=== PATIENT | female | born 1950 | race Caucasian/White ===

== ENCOUNTER 2017-05-03 13:52 | Emergency (ER) | payer OTHER ==
[2017-05-03] MEDS ORDERED: KETOROLAC 60 MG/2 ML VIAL IVP STA (14:27)
--- NOTE | 2017-05-03 14:30 | ED Physician Documentation ---
PD HPI ABD PAIN - Stated complaint Stated Complaint: R SIDE PX - Chief complaint Chief Complaint: Abd Pain - History obtained from History obtained from: Patient - History of Present Illness Timing - onset: Other (She had sudden onset right flank pain about 2 days ago that is nonradiating. There are no urinary or bowel complaints with it. She did vomit once but it was after taking a Vicodin, she has not otherwise been nauseous. She had similar symptoms briefly about 6 months ago that she thinks were kidney stone, she did not seek medical attention at that time.) Review of Systems Ten Systems: 10 systems reviewed and negative Constitutional: denies: Fever, Chills Nose: denies: Rhinorrhea / runny nose, Congestion Cardiac: denies: Chest pain / pressure, Palpitations Respiratory: denies: Dyspnea, Cough PD PAST MEDICAL HISTORY - Past Medical History Past Medical History: Yes Cardiovascular: High cholesterol - Present Medications Home Medications: Ambulatory Orders Medication Instructions Recorded Confirmed Atorvastatin [Lipitor] 0 mg 05/03/17 Ketorolac [Toradol] 10 mg PO Q6H PRN #14 tablet 05/03/17 - Allergies Allergies/Adverse Reactions: Allergies Allergy/AdvReac Type Severity Reaction Status Date / Time Penicillins Allergy Unknown Verified 05/03/17 14:18 Sulfa (Sulfonamide Allergy Unknown Verified 05/03/17 14:18 Antibiotics) - Social History Does the pt smoke?: No Smoking Status: Never smoker PD ED PE NORMAL - Vitals Vital signs reviewed: Yes - General General: Alert and oriented X 3, No acute distress - HEENT HEENT: PERRL, EOMI - Neck Neck: Supple, no meningeal sign, No bony TTP - Cardiac Cardiac: RRR, No murmur - Respiratory Respiratory: No respiratory distress, Clear bilaterally - Abdomen Abdomen: Normal bowel sounds, Soft, Non tender - Back Back: No CVA TTP, No spinal TTP - Derm Derm: Normal color, Warm and dry - Extremities Extremities: No edema, No calf tenderness / cord - Neuro Neuro: Alert and oriented X 3, Normal speech - Psych Psych: Normal mood, Normal affect Results - Vitals Vitals: Vital Signs - 24 hr 05/03/17 14:20 Temperature 36.6 C Heart Rate 68 Respiratory 14 Rate Blood Pressure 154/75 H O2 Saturation 98 Oxygen O2 Source Room air - Labs Labs: Laboratory Tests 05/03/17 05/03/17 05/03/17 14:20 14:40 14:40 WBC 9.6 RBC 5.02 Hgb 14.0 Hct 41.2 MCV 82.0 MCH 27.9 MCHC 34.1 RDW 13.3 Plt Count 227 MPV 8.8 Neut # 6.0 Lymph # 2.7 [place] # 0.6 Eos # 0.1 Baso # 0.1 Absolute Nucleated RBC 0.00 Nucleated RBC % 0.0 Sodium 133 L Potassium 3.3 L Chloride 98 L Carbon Dioxide 26 Anion Gap 9.0 BUN 20 Creatinine 0.8 Estimated GFR (MDRD) 72 L Glucose 130 H Calcium 9.0 Total Bilirubin 0.8 AST 21 ALT 20 Alkaline Phosphatase 76 Total Protein 8.1 Albumin 4.1 Globulin 4.0 Albumin/Globulin Ratio 1.0 Lipase 25 Urine Color YELLOW Urine Clarity CLEAR Urine pH 6.0 Ur Specific [place] 1.020 Urine Protein NEGATIVE Urine Glucose (UA) NEGATIVE Urine Ketones NEGATIVE Urine Occult Blood NEGATIVE Urine Nitrite NEGATIVE Urine Bilirubin NEGATIVE Urine Urobilinogen 0.2 (NORMAL) Ur Leukocyte Esterase TRACE H Urine RBC 0-5 Urine WBC 0-3 Ur Squamous Epith Cells MANY Squamous H Urine Bacteria None Seen Urine Mucus Moderate Strands Ur Microscopic Review INDICATED Urine Culture Comments NOT INDICATED - Rads (name of study) CT KUB Radiology: EMP read contemporaneously (No urinary tract stone or hydronephrosis , there is diverticulosis and small bibasilar infiltrates or atelectasis, right more than left.) CT Angio Chest/Abd/Pelvis Radiology: EMP read contemporaneously (No PE, Bilobed soft tissue mass in the left adnexa which was discussed with the patient in follow-up advised.) PD MEDICAL DECISION MAKING - ED course ED course: 66-year-old woman with acute right flank pain of 2 days duration, initial workup was for renal colic which demonstrated no significant painful abnormalities and this was followed by angiography for PE and arterial issues which was also negative except for the incidentally found pelvic mass which was discussed with the patient and follow-up was advised. Departure - Departure Disposition: 01 Home, Self Care Clinical Impression: Flank pain Abdominal pain Qualifiers: Abdominal location: unspecified location Qualified Code(s): R10.9 - Unspecified abdominal pain Condition: Good Record reviewed to determine appropriate education?: Yes Instructions: ED Abdominal Pain Unkn Cause Prescriptions: Ketorolac [Toradol] 10 mg PO Q6H PRN #14 tablet PRN Reason: Pain Comments: Return if worse or if any new symptoms develop, follow-up with Dr. Chapin, next available appointment to discuss this issue as well as the left pelvic mass which will need further workup. Your blood pressure was elevated today on check into the emergency department. This does not mean that you have hypertension, it is a common phenomenon to come to the emergency department and have elevated blood pressure. I recommend that she see your primary care physician within the week to have it rechecked when you are feeling better.
[2017-05-03 14:35] LABS: BILIRUBIN,URINE NEGATIVE (NEGATIVE); UA w/ MICROSCOPIC CHARGE YES
[2017-05-03 14:45] LABS: UR CULTURE IF IND NOT INDICATED; WBC,URINE 0-3 /HPF (0-5)
[2017-05-03 14:49] LABS: BASOPHILS # (AUTO) 0.1 10^3/uL (0.0-0.1); BASOPHILS % (AUTO) 0.8 %; EOSINOPHILS # (AUTO) 0.1 10^3/uL (0.0-0.7); EOSINOPHILS % (AUTO) 1.5 %; HCT - HEMATOCRIT 41.2 % (37.0-47.0); LYMPHOCYTES # (AUTO) 2.7 10^3/uL (1.5-3.5); LYMPHOCYTES % (AUTO) 28.4 %; MEAN CORPUSCULAR HEMOGLOBIN 27.9 pg (27.0-31.0); MEAN CORPUSCULAR HGB CONC 34.1 g/dL (32.0-36.0); MEAN PLATELET VOLUME 8.8 fL (7.9-10.8); MONOCYTES # (AUTO) 0.6 10^3/uL (0.0-1.0); MONOCYTES % (AUTO) 6.3 %; RED BLOOD COUNT 5.02 10^6/uL (4.20-5.40); RED CELL DISTRIBUTION WIDTH 13.3 % (12.0-15.0); UNCORRECTED WHITE BLOOD COUNT 9.6 x10^3/uL; WHITE BLOOD COUNT 9.6 x10^3/uL (4.8-10.8)
[2017-05-03] MEDS ORDERED: KETOROLAC 30 MG/ML VIAL ONE (14:49)
[2017-05-03 15:04] LABS: BILIRUBIN,TOTAL 0.8 mg/dL (0.2-1.0); CREATININE 0.8 mg/dL (0.4-1.0); POTASSIUM 3.3 mmol/L (3.5-5.0); TOTAL PROTEIN 8.1 g/dL (6.7-8.2)
--- NOTE | 2017-05-03 15:19 | CT Preliminary Report ---
Exam: CT Abdomen/Pelvis W/O IMPRESSION: 1. Negative for urinary tract stone or hydronephrosis. 2. Small bibasilar infiltrates or atelectasis, right more than left. 3. Moderate diverticulosis and other chronic or incidental findings. [facility] SITE ID: [id number]
--- NOTE | 2017-05-03 15:21 | CT Report ---
EXAM: CT ABDOMEN AND PELVIS (CT KUB) EXAM DATE: 05/03/2017 02:55 PM. CLINICAL HISTORY: R flank pain. COMPARISONS: None. TECHNIQUE: Routine axial helical CT imaging was performed through the abdomen and pelvis without IV c ontrast. Reconstructions: Coronal and sagittal. In accordance with CT protocol optimization, one or more of the following dose reduction techniques w ere utilized for this exam: automated exposure control, adjustment of mA and/or KV based on patient s ize, or use of iterative reconstructive technique. FINDINGS: Lung Bases: Mild bibasilar atelectasis. Patchy groundglass density, right more than left, atelectasis versus infiltrate. No consolidation or effusion. Right Kidney/Ureter: Probable cyst measuring about 2.8 cm. Otherwise unremarkable. No stone or hydron ephrosis. Left Kidney/Ureter: No stones, hydronephrosis, or hydroureter. No perinephric fat stranding. Other Solid Organs: Noncontrast images of the solid organs are grossly unremarkable. Gallbladder/Bile Ducts: Surgically absent. No ductal dilation. Peritoneal Cavity: Moderate colonic diverticulosis. No diverticulitis at this time. No free fluid, fr ee air, lymphadenopathy, or bowel dilation. Normal appendix. Pelvic Organs: No bladder stones or wall thickening. 2.7 cm left ovarian cyst. Noncontrast images of the visualized pelvic organs are otherwise unremarkable. Vasculature: Unremarkable. Other: Scarring in midline upper abdominal wall with tiny fat containing hernias. IMPRESSION: 1. Negative for urinary tract stone or hydronephrosis. 2. Small bibasilar infiltrates or atelectasis, right more than left. 3. Moderate diverticulosis and other chronic or incidental findings. [facility] Referring Provider Line: [phone] SITE ID: [id number]
[2017-05-03] MEDS ORDERED: IOPAMIDOL-300 100 ML VIAL ONE (15:37)
[2017-05-03] MEDS ORDERED: IOPAMIDOL-300 100 ML VIAL IVP ONE (15:51)
--- NOTE | 2017-05-03 16:36 | CT Report ---
EXAM: CT ANGIOGRAM CHEST EXAM DATE: 05/03/2017 03:59 PM. CLINICAL HISTORY: Right flank pain COMPARISON: None. TECHNIQUE: Routine helical imaging was performed through the chest in the pulmonary arterial phase. I V Contrast: 100 cc Isovue-300. Reconstructions: Coronal 3-D MIP reconstructions.Sagittal and coronal. In accordance with CT protocol optimization, one or more of the following dose reduction techniques w ere utilized for this exam: automated exposure control, adjustment of mA and/or KV based on patient s ize, or use of iterative reconstructive technique. FINDINGS: Pulmonary Arteries: Diagnostic quality: Adequate through the segmental arteries. No evidence for acute or chronic pulmona ry emboli. Lungs/Pleura: No evidence of lobar consolidation or effusion. No central airway abnormalities. No fantasma dence of edema. No pneumothorax. Mediastinum: Normal. No cardiac enlargement or adenopathy. Thoracic Aorta: Unremarkable. Upper Abdomen: Findings are detailed separately. Other: None. IMPRESSION: Negative pulmonary CT angiogram. No pulmonary emboli. [facility] Referring Provider Line: [phone] SITE ID: [id number]
--- NOTE | 2017-05-03 16:43 | CT Report ---
EXAM: CT ANGIOGRAM ABDOMEN AND PELVIS WITH CONTRAST EXAM DATE: 05/03/2017 03:59 PM. CLINICAL HISTORY: Right flank pain COMPARISONS: 05/03/2017. TECHNIQUE: Routine helical CT angiogram imaging was performed through the abdomen and pelvis in the a rterial phase. IV contrast: 100 cc Isovue-300. Enteric contrast: No. Reconstructions: Coronal, sagitt al, and 3D MIP reconstructions. In accordance with CT protocol optimization, one or more of the following dose reduction techniques w ere utilized for this exam: automated exposure control, adjustment of mA and/or KV based on patient s ize, or use of iterative reconstructive technique. FINDINGS: Vasculature: Normal. No aneurysm, dissection, or significant atherosclerotic disease of the abdominal aorta and iliac arteries. The visualized mesenteric and solid organ vascular structures are also wit hin normal limits. Lung Bases: Normal. Abdominal Solid Organs: The liver, spleen, pancreas, adrenal glands, and kidneys demonstrate no arter ial phase abnormalities. The gallbladder is surgically absent. No SPECT evidence of duct dilatation. Peritoneal Cavity: No dilated or thick-walled bowel is seen. There is no evidence of intraperitoneal free air or free fluid. There are no enlarged mesenteric or retroperitoneal lymph nodes. Pelvic Organs: There is a uterine fibroid. There is a lobulated left adnexal mass measuring approxima tely 4 x 3 cm. Bones: No significant abnormality. Other: None. IMPRESSION: 1. No acute arterial abnormalities are seen. 2. Arterial phase imaging of the solid abdominal organs is within normal limits. 3. No acute gastric intestinal tract abnormalities are seen. 4. Bilobed soft tissue density measuring approximately 4 x 3 cm within the left adnexa. This could re present adjacent ovaries, left ovarian cyst or cystic ovarian neoplasm, or parapelvic cyst. Pelvic ul trasound could be used for further evaluation of this finding as indicated. 5. There is a right intramural uterine fibroid. [facility] Referring Provider Line: [phone] SITE ID: [id number]
[2017-05-03 17:15] VITALS: BP 147/75
== END 2017-05-03 17:17 | disposition home or self-care (01) ==
LOC: ED 13:52
DX: R10.31 Right lower quadrant pain (principal); R03.0 Elevated blood-pressure reading, without diagnosis of hypertension; E78.00 Pure hypercholesterolemia, unspecified
CPT/HCPCS: 36415; 71275; 74174; 74176; 80053; 81001; 83690; 85025; 96374; 99283; 99284; Q9967; 81003; 85379; 87086

== ENCOUNTER 2017-05-09 05:15 | Emergency (ER) | payer MEDICARE, OTHER ==
[2017-05-09 05:53] LABS: BILIRUBIN,URINE NEGATIVE (NEGATIVE); PH,URINE 6.5 PH (5.0-7.5)
[2017-05-09 05:55] LABS: UA w/ MICROSCOPIC CHARGE YES
[2017-05-09 06:03] LABS: UR CULTURE IF IND NOT INDICATED
[2017-05-09 06:09] LABS: BASOPHILS # (AUTO) 0.1 10^3/uL (0.0-0.1); BASOPHILS % (AUTO) 0.9 %; EOSINOPHILS # (AUTO) 0.2 10^3/uL (0.0-0.7); EOSINOPHILS % (AUTO) 1.6 %; HCT - HEMATOCRIT 43.1 % (37.0-47.0); HGB - HEMOGLOBIN 14.5 g/dL (12.0-16.0); LYMPHOCYTES # (AUTO) 2.2 10^3/uL (1.5-3.5); LYMPHOCYTES % (AUTO) 18.6 %; MEAN CORPUSCULAR HEMOGLOBIN 28.1 pg (27.0-31.0); MEAN CORPUSCULAR HGB CONC 33.5 g/dL (32.0-36.0); MEAN CORPUSCULAR VOLUME 83.8 fL (81.0-99.0); MONOCYTES # (AUTO) 0.7 10^3/uL (0.0-1.0); MONOCYTES % (AUTO) 5.7 %; NEUTROPHILS # (AUTO) 8.6 10^3/uL (1.5-6.6); NEUTROPHILS % (AUTO) 73.2 %; RED BLOOD COUNT 5.14 10^6/uL (4.20-5.40); RED CELL DISTRIBUTION WIDTH 13.1 % (12.0-15.0); UNCORRECTED WHITE BLOOD COUNT 11.8 x10^3/uL; WHITE BLOOD COUNT 11.8 x10^3/uL (4.8-10.8)
[2017-05-09 06:20] LABS: ALBUMIN/GLOBULIN RATIO 1.2 (1.0-2.2); BILIRUBIN,TOTAL 0.6 mg/dL (0.2-1.0); CALCIUM 9.8 mg/dL (8.5-10.3); CREATININE 0.9 mg/dL (0.4-1.0)
[2017-05-09] MEDS ORDERED: SODIUM CHLORIDE 0.9% 1,000 ML IV ONE (06:24)
[2017-05-09] MEDS ORDERED: MORPHINE 10 MG/ML VIAL IVP STA (06:26)
--- NOTE | 2017-05-09 06:31 | ED Physician Documentation ---
PD HPI BACK PAIN - Stated complaint Stated Complaint: BACK PAIN - Chief complaint Chief Complaint: General - History obtained from History obtained from: Patient - History of Present Illness Timing - onset: Chronic Timing - details: Gradual onset, Still present Location: Lower, Right Quality: Pain, Sharp, Aching, Similar to prior episodes Associated symptoms: No: Fever, Weakness, Numbness, Incontinent of urine, Unable to urinate, Hematuria Worsened by: Movement. No: Palpation Similar symptoms before: Work up / diagnostics, Treatment Recently seen: Emergency Dept - Additional information Additional information: Patient is a 66 year old female who is presenting to the emergency department for back pain. Patient states that it has been going on for the last few weeks. patient was seen here and a complete work up was done. At that point a complete work up was performed including CT scans with and without contrast. Patient states that her pain continued so she came back in for evaluation. Review of Systems Constitutional: denies: Fever, Chills Eyes: reports: Reviewed and negative Ears: reports: Reviewed and negative Nose: reports: Reviewed and negative Throat: reports: Reviewed and negative Cardiac: denies: Chest pain / pressure, Palpitations, Calf pain Respiratory: denies: Dyspnea, Cough, Wheezing GI: denies: Nausea, Vomiting, Constipation, Diarrhea : denies: Dysuria, Frequency, Hesitancy, Hematuria Skin: denies: Rash, Lesions, Abrasion (s) Musculoskeletal: reports: Back pain. denies: Extremity pain Neurologic: denies: Generalized weakness, Focal weakness, Numbness Immunocompromised: denies: Immunocompromised PD PAST MEDICAL HISTORY - Past Medical History Past Medical History: Yes Cardiovascular: High cholesterol - Present Medications Home Medications: Ambulatory Orders Medication Instructions Recorded Confirmed Atorvastatin [Lipitor] 0 mg 05/03/17 Ketorolac [Toradol] 10 mg PO Q6H PRN #14 tablet 05/03/17 - Allergies Allergies/Adverse Reactions: Allergies Allergy/AdvReac Type Severity Reaction Status Date / Time Penicillins Allergy Unknown Verified 05/03/17 14:18 Sulfa (Sulfonamide Allergy Unknown Verified 05/03/17 14:18 Antibiotics) - Social History Does the pt smoke?: No Smoking Status: Never smoker - POLST Patient has POLST: No PD ED PE NORMAL - Vitals Vital signs reviewed: Yes - General General: Alert and oriented X 3, No acute distress, Well developed/nourished - HEENT HEENT: Atraumatic, PERRL, Pharynx benign - Neck Neck: Supple, no meningeal sign, No JVD - Cardiac Cardiac: RRR, No murmur, No rub - Respiratory Respiratory: No respiratory distress, Clear bilaterally - Abdomen Abdomen: Soft, Non tender, Non distended - Derm Derm: Normal color, Warm and dry, No rash - Extremities Extremities: No deformity - Neuro Neuro: Alert and oriented X 3, No motor deficit, No sensory deficit - Psych Psych: Normal mood Results - Vitals Vitals: Vital Signs - 24 hr 05/09/17 05/09/17 05:25 06:39 Temperature 36.6 C 37.0 C Heart Rate 57 L 53 L Respiratory 17 16 Rate Blood Pressure 179/69 H 174/76 H O2 Saturation 99 98 Oxygen O2 Source Room air - Labs Labs: Laboratory Tests 05/09/17 05/09/17 05/09/17 05:47 06:02 06:02 WBC 11.8 H RBC 5.14 Hgb 14.5 Hct 43.1 MCV 83.8 MCH 28.1 MCHC 33.5 RDW 13.1 Plt Count 226 MPV 9.0 Neut # 8.6 H Lymph # 2.2 [place] # 0.7 Eos # 0.2 Baso # 0.1 Absolute Nucleated RBC 0.00 Nucleated RBC % 0.0 Sodium 133 L Potassium 4.0 Chloride 95 L Carbon Dioxide 25 Anion Gap 13.0 BUN 24 H Creatinine 0.9 Estimated GFR (MDRD) 63 L Glucose 121 H Calcium 9.8 Total Bilirubin 0.6 AST 19 ALT 22 Alkaline Phosphatase 80 Total Protein 8.0 Albumin 4.3 Globulin 3.7 Albumin/Globulin Ratio 1.2 Lipase 29 Urine Color YELLOW Urine Clarity CLEAR Urine pH 6.5 Ur Specific [place] 1.020 Urine Protein NEGATIVE Urine Glucose (UA) NEGATIVE Urine Ketones NEGATIVE Urine Occult Blood NEGATIVE Urine Nitrite NEGATIVE Urine Bilirubin NEGATIVE Urine Urobilinogen 0.2 (NORMAL) Ur Leukocyte Esterase SMALL H Urine RBC None Seen Urine WBC 6-10 H Ur Squamous Epith Cells MANY Squamous H Urine Bacteria Rare Ur Microscopic Review INDICATED Urine Culture Comments NOT INDICATED - Rads (name of study) renal ultrasound Radiology: Final report received (simple cyst, no other abnormalities) PD MEDICAL DECISION MAKING - ED course Complexity details: reviewed old records, reviewed results, re-evaluated patient , considered differential, d/w patient, d/w family ED course: Patient was seen and examined at bedside. Patient was well appearing and only in mild pain. labs were drawn and urine was collected. ultrasound was ordered. previous records were reviewed. Patient had normal CT with and without contrast within the last week. Patient was treated with a fluid bolus and 4mg of morphine. Patient's diagnostics were within normal limits. patient required no further work up at this time and was stable for discharge with outpatient follow up. Departure - Departure Disposition: 01 Home, Self Care Clinical Impression: Flank pain Condition: Good Instructions: ED Flank Pain Uncertain Cause Follow-Up: CRISTÓBAL HALL MD [Primary Care Provider] - Tomorrow Comments: Your diagnostics today were within normal limits. your ultrasound only showed a cyst. You renal function looked a little worse compared to last time, but should improve with the fluids you received. It is difficult to say what is causing your pain exactly. You should follow up with your doctor in the next few days for further evaluation and care. Discharge Date/Time: 05/09/17 07:59
[2017-05-09] MEDS ORDERED: SODIUM CHLORIDE FLUSH 0.9% 10 ML SYRINGE IVP ONE ×2 (06:35→06:48)
[2017-05-09 06:40] VITALS: BP 174/76
[2017-05-09] MEDS ORDERED: MORPHINE 2 MG/ML SYRINGE ONE (06:48)
[2017-05-09] MEDS ORDERED: ONDANSETRON 4 MG/2 ML VIAL ONE (06:54)
[2017-05-09] MEDS ORDERED: ONDANSETRON 4 MG/2 ML VIAL IVP STA (06:56)
--- NOTE | 2017-05-09 07:43 | Ultrasound Preliminary Report ---
Exam: US RETROPERITONEAL LIMITED IMPRESSION: 1. Normal echotexture of the right kidney. No hydronephrosis. 2. Lower pole simple right renal 2.7 cm cyst. [facility] SITE ID: [id number]
--- NOTE | 2017-05-09 07:46 | Ultrasound Report ---
EXAM: RENAL ULTRASOUND EXAM DATE: 05/09/2017 07:18 AM. CLINICAL HISTORY: Right sided flank pain. COMPARISON: CT from 05/03/2017. TECHNIQUE: Real-time scanning was performed with static images obtained. FINDINGS: Right Kidney: 12 x 5.4 x 4.3 cm. Normal echotexture. Lower pole right renal 2.7 x 2.7 x 2.6 cm cyst i s present. No renal calculi. No solid renal masses. Left Kidney: Not assessed. Portions of the visualized liver appear echogenic. IMPRESSION: 1. Normal echotexture of the right kidney. No hydronephrosis. 2. Lower pole simple right renal 2.7 cm cyst. [facility] Referring Provider Line: [phone] SITE ID: [id number]
== END 2017-05-09 07:59 | disposition home or self-care (01) ==
LOC: ED 05:15
DX: R10.30 Lower abdominal pain, unspecified (principal); M54.5 Low back pain; G89.29 Other chronic pain; R19.00 Intra-abdominal and pelvic swelling, mass and lump, unspecified site; N28.1 Cyst of kidney, acquired; E78.00 Pure hypercholesterolemia, unspecified
CPT/HCPCS: 36415; 76775; 76830; 76856; 80053; 81001; 83690; 85025; 96374; 96375; 99283; 99284; J2270; 81003; 87086

== ENCOUNTER 2017-05-09 10:55 | Outpatient (CLI) | payer MEDICARE, OTHER ==
--- NOTE | 2017-05-09 13:02 | Ultrasound Report ---
PELVIC ULTRASOUND: 05/09/2017 CLINICAL INDICATION: Pelvic mass seen on CT. COMPARISON: CT of 05/03/2017. TECHNIQUE: Transabdominal and transvaginal scanning was attempted. The patient was unable to tolerate transvaginal scanning. FINDINGS: Transabdominal scanning image quality is degraded by habitus. The uterus is anteverted, me asuring 8.5 x 4.0 x 2.6 cm. The endometrial echo complex measures 4 mm. There is a 3.1 x 3.5 x 2.8 cm mass superior to the uterus. Neither ovary was confidently identified on transabdominal imaging. No free fluid was seen. IMPRESSION: A SOLID APPEARING 3.5 CM MASS SUPERIOR TO THE UTERUS ON TRANSABDOMINAL SCANNING, BUT BOD Y HABITUS DOES LIMIT IMAGE QUALITY. CONSIDER PELVIC MRI FOR FURTHER EVALUATION, IF CLINICALLY WARRANT ED. JOB #: [id number] EXT JOB #:[id number]
== END 2017-05-09 10:56 | disposition home or self-care (01) ==
LOC: DI 10:55
PROVIDERS: ATTEND Nurse Practitioner Family
DX: R19.00 Intra-abdominal and pelvic swelling, mass and lump, unspecified site (principal)
CPT/HCPCS: 76830; 76856

== ENCOUNTER 2017-05-11 08:00 | Outpatient (CLI) | payer MEDICARE | END 2017-05-11 08:01 | disposition home or self-care (01) | LOC: LAB.F 08:00 | PROVIDERS: ATTEND Family Medicine | DX: R19.00 Intra-abdominal and pelvic swelling, mass and lump, unspecified site (principal); R10.9 Unspecified abdominal pain | CPT/HCPCS: 87086 ==

== ENCOUNTER 2017-05-12 12:53 | Outpatient (CLI) | payer MEDICARE ==
[~2017-05-12 12:53] MED LIST: GADOBUTROL 10 MMOL/10 ML VIAL ONE
== END 2017-05-12 12:54 | disposition home or self-care (01) ==
LOC: DI 12:53
PROVIDERS: ATTEND Nurse Practitioner Family
DX: Z53.9 Procedure and treatment not carried out, unspecified reason (principal)

== ENCOUNTER 2017-08-30 11:23 | Outpatient (CLI) | payer MEDICARE ==
[2017-08-30 18:06] LABS: ALBUMIN/GLOBULIN RATIO 1.1 (1.0-2.2); ALKALINE PHOSPHATASE 71 IU/L (42-121); ALT ALANINE AMINOTRANSFERASE 22 IU/L (10-60); AST ASPARTATE AMINOTRANSFERASE 21 IU/L (10-42); BILIRUBIN,TOTAL 0.6 mg/dL (0.2-1.0); BUN - BLOOD UREA NITROGEN 20 mg/dL (6-20); CALCIUM 9.1 mg/dL (8.5-10.3); CARBON DIOXIDE - CO2 25 mmol/L (21-32); CHLORIDE 103 mmol/L (101-111); CHOL/HDL RATIO 3.1 (<4.4); CHOLESTEROL 165 mg/dL; CREATININE 0.9 mg/dL (0.4-1.0); GFR - MDRD 62 (>89); GLUCOSE 101 mg/dL (70-100); HDL CHOLESTEROL 54 mg/dL; LDL CHOLESTEROL,CALCULATED 84 mg/dL; LDL/HDL RATIO 1.6 (<4.4); SODIUM 136 mmol/L (135-145); TOTAL PROTEIN 7.6 g/dL (6.7-8.2); VLDL CHOLESTEROL 27 mg/dL
== END 2017-08-30 11:24 | disposition home or self-care (01) ==
LOC: LAB.F 11:23
PROVIDERS: ATTEND Family Medicine
DX: E78.5 Hyperlipidemia, unspecified (principal); I10 Essential (primary) hypertension
CPT/HCPCS: 36415; 80053; 80061; 83721

== ENCOUNTER 2017-09-20 13:01 | Outpatient (CLI) | payer MEDICARE | END 2017-09-20 13:02 | disposition home or self-care (01) | LOC: DI 13:01 | PROVIDERS: ATTEND Physician Assistant Medical | DX: R01.1 Cardiac murmur, unspecified (principal) | CPT/HCPCS: 93306 ==